=== PATIENT | male | born 1960 | race African-American/Black ===

== ENCOUNTER 2023-10-07 15:26 | Inpatient (IN) ==
[2023-10-07 16:28] LABS: STREP A BY PCR NOT DETECTED (NOT DETECT)
--- NOTE | 2023-10-07 20:10 | EKG ---
Test Reason : CHEST PAIN Blood Pressure : */* mmHG Vent. Rate : 74 BPM Atrial Rate : 74 BPM P-R Int : 168 ms QRS Dur : 108 ms QT Int : 390 ms P-R-T Axes : 55 36 65 degrees QTc Int : 432 ms Sinus rhythm with premature supraventricular complexes Minimal voltage criteria for LVH, may be normal variant ( Sokolow-Chowdhury ) Borderline ECG No previous ECGs available Confirmed by Manjeet Chery ([id number]) on 10/09/2023 7:58:20 AM Referred By: Confirmed By: Manjeet Chery
[2023-10-07 20:44] LABS: BASOPHILS % (AUTO) 0.3 % (0.2-1.0); EOSINOPHILS # (AUTO) 0.1 x10^3/uL (0.0-0.2); EOSINOPHILS % (AUTO) 0.8 % (0.9-2.9); HEMATOCRIT 39.4 % (42.0-54.0); HEMOGLOBIN 13.2 g/dL (13.5-18.0); LYMPHOCYTES # (AUTO) 1.5 X10^3/uL (1.3-2.9); LYMPHOCYTES % (AUTO) 13.5 % (21.0-51.0); MEAN CORPUSCULAR HEMOGLOBIN 28.2 pg (27.0-34.0); MEAN CORPUSCULAR HGB CONC 33.5 g/dL (33.0-35.0); MEAN CORPUSCULAR VOLUME 84.4 fL (80.0-100.0); MEAN PLATELET VOLUME 8.5 fL (7.4-11.0); MONOCYTES % (AUTO) 18.5 % (0.0-13.0); NEUTROPHILS # (AUTO) 7.3 x10^3/uL (2.2-4.8); NEUTROPHILS % (AUTO) 66.9 % (42.0-75.0); PLATELET COUNT 227 X10^3/uL (150.0-450.0); RED BLOOD COUNT 4.67 X10^6/uL (4.7-6.0); RED CELL DISTRIBUTION WIDTH 13.7 % (11.6-16.5)
[2023-10-07 20:46] LABS: INR 1.11 (0.8-1.3)
[2023-10-07 20:48] LABS: BILIRUBIN,URINE 1+ (NEGATIVE); BLOOD/HEMOGLOBIN,URINE 3+ (NEGATIVE); GLUCOSE, URINE NEGATIVE (NEGATIVE); KETONES,URINE NEGATIVE (NEGATIVE); LEUKOCYTE ESTERASE ,URINE 1+ (NEGATIVE); NITRITES,URINE NEGATIVE (NEGATIVE); PROTEIN,URINE 2+ (NEGATIVE); UROBILINOGEN,URINE 2+ (NORMAL)
--- NOTE | 2023-10-07 20:55 | DR.URIAD ---
HPI Time Seen Time Seen by Provider: 10/07/23 20:55 PCP Primary Care Physician: Antonieta Complaint Chief Complaint Doctors Comments: Patient states that he has been feeling weak for the past 2 days. He had:decreased appetite,fever,bodyaches,and dizzines s.Patient denies: sob, n,v,headache,abdominal pain. Chief Complaint:: Patient states that for 2 days he has had decreased appetite, fever, bodyaches, cough, and dizziness. COVID-19 Coronavirus risk:travel/contact w/high risk person: Yes Has patient experienced Coronavirus symptoms: Yes Coronavirus symptoms experienced: Fever, Coughing and Shortness of Breath Source History Provided: Patient Mode of Arrival Mode of Arrival: Ambulatory Timing Onset of Chief Complaint: 10/05/23 PMH PMH Past Medical History: Yes Past Medical History: Hypertension and Kidney Stones Past Surgical History: Yes Surgical History: Lithotripsy Family History History of Family Medical Conditions: Yes Family Medical History: Diabetes Mellitus, Cancer, [place], Heart Failure and Hypertension Social History Does patient currently use any type of tobacco product: No Have you used tobacco products in the last 12 months: No Type of Tobacco Use: None Does any household member use tobacco: No Alcohol Use: None Do you use any recreational Drugs:: No Lives With: Family Lives Where: Home Travel Risk Coronavirus risk:travel/contact w/high risk person: Yes Has patient experienced Coronavirus symptoms: Yes Coronavirus symptoms experienced: Fever, Coughing and Shortness of Breath Infectious screening In the last 2 months have you had wt loss of >10#?: NO Have you had fever, night sweats or hemotysis?: No Have you traveled outside the country in the last 6 months?: No Isolation: Droplet ROS Review of Systems Constitutional: negative Fever Eyes: No Symptoms Reported ENTM: No Symptoms Reported Respiratoy: No Symptoms Reported and Productive Cough (brown sputum,yellow sputum) Cardiovascular: No Symptoms Reported Gastrointestinal/Abdominal: No Symptoms Reported Genitourinary: No Symptoms Reported Neurological: No Symptoms Reported Musculoskeletal: No Symptoms Reported Integumentary: No Symptoms Reported Hematologic/Lymphatic: No Symptoms Reported Endocrine: No Symptoms Reported Psychiatric: No Symptoms Reported All Other Systems: Reviewed and Negative PE Vital Signs Vitals: Vital Signs Pulse Rate 66 Pulse Rate 64 Pulse Rate 63 Pulse Rate 63 Pulse Rate 64 Pulse Rate 66 Pulse Rate 71 Pulse Rate 65 Pulse Rate 63 Pulse Rate 65 Pulse Rate 69 Pulse Rate 69 Pulse Rate 70 Pulse Rate 67 Pulse Rate 68 Pulse Rate 66 Pulse Rate 70 Pulse Rate 70 Pulse Rate 70 Pulse Rate 69 Pulse Rate 69 Pulse Rate 70 Pulse Rate 68 Pulse Rate 73 Pulse Rate 78 Pulse Rate 80 Pulse Rate 81 Pulse Rate 80 Pulse Rate 81 Pulse Rate 72 Pulse Rate 78 Pulse Rate 78 Pulse Rate 87 Pulse Rate 80 Pulse Rate 81 Pulse Rate 82 Pulse Rate 79 Pulse Rate 76 Respiratory Rate 16 Respiratory Rate 16 Respiratory Rate 15 Respiratory Rate 15 Respiratory Rate 17 Respiratory Rate 22 Respiratory Rate 29 Respiratory Rate 16 Respiratory Rate 15 Respiratory Rate 16 Respiratory Rate 16 Respiratory Rate 17 Respiratory Rate 23 Respiratory Rate 25 Respiratory Rate 18 Respiratory Rate 20 Respiratory Rate 19 Respiratory Rate 23 Respiratory Rate 21 Respiratory Rate 19 Respiratory Rate 24 Respiratory Rate 27 Respiratory Rate 16 Respiratory Rate 23 Respiratory Rate 25 Respiratory Rate 34 Respiratory Rate 28 Respiratory Rate 20 Respiratory Rate 33 Respiratory Rate 24 Respiratory Rate 23 Respiratory Rate 24 Respiratory Rate 20 Respiratory Rate 31 Respiratory Rate 23 Respiratory Rate 26 Respiratory Rate 29 Blood Pressure 133/73 Blood Pressure 120/72 Blood Pressure 123/63 Blood Pressure 122/73 Blood Pressure 120/73 Blood Pressure 124/75 Blood Pressure 118/79 Blood Pressure 133/76 Blood Pressure 118/79 Blood Pressure 121/71 Blood Pressure 109/68 Blood Pressure 121/71 Blood Pressure 108/64 Blood Pressure 139/63 Blood Pressure 139/63 Blood Pressure 118/71 Blood Pressure 118/71 Blood Pressure 104/64 Blood Pressure 128/86 O2 Sat by Pulse Oximetry 98 O2 Sat by Pulse Oximetry 98 O2 Sat by Pulse Oximetry 96 O2 Sat by Pulse Oximetry 96 O2 Sat by Pulse Oximetry 96 O2 Sat by Pulse Oximetry 96 O2 Sat by Pulse Oximetry 94 O2 Sat by Pulse Oximetry 97 O2 Sat by Pulse Oximetry 96 O2 Sat by Pulse Oximetry 96 O2 Sat by Pulse Oximetry 96 O2 Sat by Pulse Oximetry 96 O2 Sat by Pulse Oximetry 96 O2 Sat by Pulse Oximetry 97 O2 Sat by Pulse Oximetry 95 O2 Sat by Pulse Oximetry 98 O2 Sat by Pulse Oximetry 94 O2 Sat by Pulse Oximetry 97 O2 Sat by Pulse Oximetry 94 O2 Sat by Pulse Oximetry 95 O2 Sat by Pulse Oximetry 94 O2 Sat by Pulse Oximetry 92 O2 Sat by Pulse Oximetry 95 O2 Sat by Pulse Oximetry 93 O2 Sat by Pulse Oximetry 93 O2 Sat by Pulse Oximetry 91 O2 Sat by Pulse Oximetry 93 O2 Sat by Pulse Oximetry 92 O2 Sat by Pulse Oximetry 94 O2 Sat by Pulse Oximetry 93 O2 Sat by Pulse Oximetry 93 O2 Sat by Pulse Oximetry 94 O2 Sat by Pulse Oximetry 97 O2 Sat by Pulse Oximetry 92 O2 Sat by Pulse Oximetry 93 O2 Sat by Pulse Oximetry 90 O2 Sat by Pulse Oximetry 93 O2 Sat by Pulse Oximetry 95 General Limitations: No Limitations General Appearance: Alert and In No Apparent Distress Head Head Exam: Normal Inspection Eyes Eye exam: Normal Appearance ENT ENT Exam: Normal Exam External Ear Exam: Normal External Inspection TM/Canal Exam: Bilateral: Normal Nose Exam: Normal Nose Exam Nasal Speculum Exam: Bilateral: Normal Mouth Exam: Normal Inspection Throat Exam: Normal Inspection Neck Neck Exam: Normal Inspection Chest Chest Inspection: Normal Inspection Respiratory Respiratory Exam: Normal Lung Sounds Bilat Respiratory Exam: Bilateral: Clear to Auscultation Cardiovascular Cardiovascular Exam: Regular Rate and Normal Rhythm Abdominal Exam Abdominal Exam: Normal Inspection, Normal Bowel Sounds and Soft Extremeties Extremities Exam: Normal Inspection Back Back Exam: Normal Inspection Neurologic Neurological Exam: Alert and Oriented X3 Psychiatric Psychiatric Exam: Normal Affect and Normal Mood Skin Skin Exam: Warm, Dry, Intact and Normal Color MDM Differential Diagnosis Differential Diagnosis: Influenza A, Influenza B, Streptococcal pharyngitis and Pneumonia COURSE Treatment Treatment: Patient was brought to monitored room and IV access was initiated. Patient had a positive D-dimer 3.77 and the CTA of his chest revealed a left lower lobe pneumonia with a small effusion. Patient's COVID 19, influenza, strep, RSV were negative. Patient has a WBC of 11.0 and was given Rocephin 2 g IV and azithromycin 500 mg IV. An ABG was done and revealed pH of 7.5, pCO2 of 36, pO2 of 76. Discussed case with Dr. Hernandez who has accepted the patient to his service. On room air patient had an O2 sat that decreased to 88-90. He was placed on 2 L O2 per nasal cannula. His current O2 sat is 98 to 100%. [facility] Labs Reviewed 10/07/23 20:26 10/07/23 20:26 Laboratory: WBC 11.0 X10^3/uL (3.6-10.0) H 10/07/23 20:26 RBC 4.67 X10^6/uL (4.7-6.0) L 10/07/23 20:26 Hgb 13.2 g/dL (13.5-18.0) L 10/07/23 20:26 Hct 39.4 % (42.0-54.0) L 10/07/23 20:26 MCV 84.4 fL (80.0-100.0) 10/07/23 20:26 MCH 28.2 pg (27.0-34.0) 10/07/23 20: MCHC 33.5 g/dL (33.0-35.0) 10/07/23 20: RDW 13.7 % (11.6-16.5) 10/07/23 20: Plt Count 227 X10^3/uL (150.0-450.0) 10/07/23 20:26 MPV 8.5 fL (7.4-11.0) 10/07/23 20:26 Neut % (Auto) 66.9 % (42.0-75.0) 10/07/23 20: Lymph % (Auto) 13.5 % (21.0-51.0) L 10/07/23 20:26 [place] % (Auto) 18.5 % (0.0-13.0) H 10/07/23 20:26 Eos % (Auto) 0.8 % (0.9-2.9) L 10/07/23 20:26 Baso % (Auto) 0.3 % (0.2-1.0) 10/07/23 20: Neut # (Auto) 7.3 x10^3/uL (2.2-4.8) H 10/07/23 20:26 Lymph # (Auto) 1.5 X10^3/uL (1.3-2.9) 10/07/23 20:26 [place] # (Auto) 2.0 x10^3/uL (0.3-0.8) H 10/07/23 20:26 Eos # (Auto) 0.1 x10^3/uL (0.0-0.2) 10/07/23 20: Baso # (Auto) 0.0 X10^3/uL (0.0-0.1) 10/07/23 20: Absolute Nucleated RBC 0.1 /100WBC 10/07/23 20: PT 14.1 SECONDS (11.8-14.3) 10/07/23 20:26 INR Target Range - 10/07/23 20: INR 1.11 (0.8-1.3) 10/07/23 20: APTT 28.9 SECONDS (22.9-36.5) 10/07/23 20: PTT Comment - 10/07/23 20:26 D-Dimer 3.77 ug/ml (0.0-0.57) H 10/07/23 20:26 Sample Site L rad 10/08/23 00:24 ABG pH 7.510 (7.35-7.45) H 10/08/23 00:24 ABG pCO2 36.0 mmHg (35.0-45.0) 10/08/23 00:24 ABG pO2 76.0 mmHg (80.0-100.0) L 10/08/23 00:24 ABG HCO3 28.7 mmol/L (22-26) H 10/08/23 00:24 ABG O2 Saturation 96.0 % (90-100) 10/08/23 00:24 ABG Base Excess 5.5 mmol/L (-2.0-2.0) H 10/08/23 00:24 Lukasz Test Pos 10/08/23 00:24 A-a Gradient 29.0 mmHg 10/08/23 00:24 FiO2 21.0 10/08/23 00:24 Blood Gas Comments Christen well staff accountant 10/08/23 00:24 Sodium 134 mmol/L (136-145) L 10/07/23 20:26 Corrected Sodium TNP 10/07/23 20:26 Potassium 3.4 mmol/L (3.5-5.1) L 10/07/23 20:26 Chloride 98 mmol/L (98-107) 10/07/23 20:26 Carbon Dioxide 29.3 mmol/L (21-32) 10/07/23 20:26 BUN 40 mg/dL (7-18) H 10/07/23 20:26 Creatinine 1.28 mg/dL (0.70-1.30) 10/07/23 20:26 Est GFR (MDRD) Af Amer > 60 (>60) 10/07/23 20:26 Est GFR (MDRD) Non-Af > 60 (>60) 10/07/23 20:26 Glucose 108 mg/dL (65-99) H 10/07/23 20:26 Lactic Acid 1.0 mmol/L (0.4-2.0) 10/07/23 23:58 Calcium 9.1 mg/dL (8.5-10.1) 10/07/23 20: Corrected Calcium 10.6 mg/dL (8.5-10.1) H 10/07/23 20:26 Total Bilirubin 0.70 mg/dL (0.2-1.0) 10/07/23 20:26 AST 19 Units/L (15-37) 10/07/23 20:26 ALT 21 Units/L (12-78) 10/07/23 20:26 Alkaline Phosphatase 74 Units/L (46-116) 10/07/23 20: Creatine Kinase 56 Units/L (39-308) 10/07/23 20: Troponin I High Sens 5.2 ng/L (4.0-60.0) 10/07/23 20: B-Natriuretic Peptide 170 pg/mL (0-79) H 10/07/23 20:26 Total Protein 7.5 g/dL (6.4-8.2) 10/07/23 20:26 Albumin 2.1 g/dL (3.4-5.0) L 10/07/23 20: Globulin 5.4 g/dL (2.5-4.5) H 10/07/23 20:26 Albumin/Globulin Ratio 0.4 Ratio (1.1-2.1) L 10/07/23 20:26 Specimen Type Clean catch urine 10/07/23 20:32 Urine Color [place] (YELLOW) 10/07/23 20: Urine Appearance Clear (CLEAR) 10/07/23 20:32 Urine pH 6.0 (5.0 - 8.0) 10/07/23 20:32 Ur Specific [place] 1.015 (1.000-1.030) 10/07/23 20: Urine Protein 2+ (NEGATIVE) 10/07/23 20: Urine Glucose (UA) Negative (NEGATIVE) 10/07/23 20: Urine Ketones Negative (NEGATIVE) 10/07/23 20: Urine Blood 3+ (NEGATIVE) 10/07/23 20: Urine Nitrite Negative (NEGATIVE) 10/07/23 20: Urine Bilirubin 1+ (NEGATIVE) 01/01/24 20:32 Urine Urobilinogen 2+ (NORMAL) 10/07/23 20:32 Ur Leukocyte Esterase 1+ (NEGATIVE) 10/07/23 20:32 Urine RBC 5-10 /HPF (0-3) A 10/07/23 20:32 Urine WBC 5-10 /HPF (0-5) A 10/07/23 20:32 Ur Squamous Epith Cells Few /HPF (NEGATIVE) 10/07/23 20:32 Amorphous Sediment 1+ /HPF (NEGATIVE) 10/07/23 20:32 Urine Bacteria Trace /HPF (NEGATIVE) 10/07/23 20:32 Urine Mucus Many /HPF (NEGATIVE) 10/07/23 20:32 Ur Culture Indicated? No/not indicated 10/07/23 20:32 SARS-CoV-2 (PCR) Negative (NEGATIVE) 10/07/23 15:40 Influenza Type A (PCR) Negative (NEGATIVE) 10/07/23 15:40 Influenza Type B (PCR) Negative (NEGATIVE) 10/07/23 15:40 RSV (PCR) Negative (NEGATIVE) 10/07/23 15:40 S. pyogenes (TEM-PCR) Not detected (NOT DETECT) 10/07/23 15:40 Opioid Opioid Risk Tool Age (Darnell box if 16-45): No History of Preadolescent Sexual Abuse: No Total: 0 Total Score Risk Category: Low Risk Copyright: Clement BRITTON predicting aberrant behaviors Discharge Plan Diagnosis Discharge Problem: Left lower lobe pneumonia, Hypoxemia Discharge Plan Patient Disposition: 09 ADMITTED INPATIENT Condition: Stable Prescriptions: No Action lisinopril-hydrochlorothiazide 20-25 mg tablet 1 tab PO QDAY Qty: 30 3RF sildenafil [Viagra] 100 mg tablet 100 mg PO QDAY PRN (Reason: sexual activity) 30 Days Qty: 30 2RF Rx Instructions: FreeTextSi (one) Tablet daily, as needed; Note: Take 1 hour before activity.; Refills: 2; Provider: Antonieta Chahal amlodipine 5 mg tablet 5 mg PO QDAY 30 Days Qty: 30 3RF meloxicam 15 mg tablet 15 mg PO QDAY 30 Days Qty: 30 3RF alprazolam [Xanax] 0.5 mg tablet 0.5 mg PO QDAY MDD 1 PRN (Reason: anxiety) 30 Days Qty: 30 0RF hydrocodone-acetaminophen 10-325 mg tablet 1 tab PO TID MDD 3 PRN (Reason: pain) 30 Days Qty: 90 0RF Health Concerns: Post Hospitalization: new medications and changes needed to prevent readmission or further decline. Pt educated and given instructions on all concerns. Plan of Treatment: Continue with present treatment and follow up plan. Pt is to keep follow up appointment as instructed and take medications as ordered. Orders to Discharge Patient Discharge Orders: Transfer (Routine); Ordered 10/08/23 Ordered By: Bertha López Follow ups/Referrals Follow ups/Referrals: Tirso Fung [Primary Care Provider] - 3 days Instructions Stand Alone Forms: Post Hospital Follow Up Care
[2023-10-07 20:57] LABS: ALANINE AMINOTRANSFERASE 21 Units/L (12-78); ALBUMIN 2.1 g/dL (3.4-5.0); ALKALINE PHOSPHATASE 74 Units/L (46-116); ASPARTATE AMINO TRANSFERASE 19 Units/L (15-37); BLOOD UREA NITROGEN 40 mg/dL (7-18); CALCIUM 9.1 mg/dL (8.5-10.1); CARBON DIOXIDE 29.3 mmol/L (21-32); CHLORIDE 98 mmol/L (98-107); COR CA(FOR HYPOALB) 10.6 mg/dL (8.5-10.1); CREATINE KINASE 56 Units/L (39-308); CREATININE 1.28 mg/dL (0.70-1.30); GLUCOSE 108 mg/dL (65-99); POTASSIUM 3.4 mmol/L (3.5-5.1); SODIUM 134 mmol/L (136-145); TOTAL PROTEIN 7.5 g/dL (6.4-8.2); eGFR NON BLACK RACES > 60 (>60)
[2023-10-07 21:13] LABS: APPEARANCE,URINE CLEAR (CLEAR); BACTERIA,URINE TRACE /HPF (NEGATIVE); COLOR,URINE AMBER (YELLOW); SQUAMOUS EPITHELIAL CELL,UR FEW /HPF (NEGATIVE)
--- NOTE | 2023-10-07 22:06 | RAD ---
EXAM:CHEST, 1 VIEWHISTORY:Patient states that for 2 days he has had decreased appetite, fever, bodyaches, cough, and dizziness.;COMPARISON:None.TECHNIQUE:A single frontal view of the chest was obtained.FINDINGS:The heart is normal in size. There is diffuse left mid lung zone and left lower lobe alveolar infiltrates. There are also infiltrates seen of the periphery of the right lung. There is no effusion. There is no pneumothorax. The osseous structures are intact. There is a healed fracture of the left 6 posterior rib.IMPRESSION:Diffuse left lung alveolar infiltrate predominantly involving the mid lung zone and left lower lobe.THIS IS AN ELECTRONICALLY VERIFIED FINAL REPORT10/07/2023 10:02 PM - Electronically signed by Kinga Natarajan MD
[2023-10-07] MEDS ORDERED: OMNIPAQUE 350 mg/mL 100 mL BTL 100 ML ONE (22:30)
--- NOTE | 2023-10-07 23:29 | CT ---
PROCEDURE: CTA Chest .HISTORY: Dizziness for 2 days.TECHNIQUE: Axial images were performed through the chest with the administration of IV contrast with multiplanar reformations . 3D and MIPS reconstructions were performed and reviewed. Dose reduction techniques including Automated Exposure Control (AEC) and adjustment of mA and kV were utilized .COMPARISON: None .TECHNICAL QUALITY: Satisfactory .FINDINGS:Mild atherosclerosis thoracic aorta with no aneurysm. Aortic lumen is unopacified with contrast.No evidence of pulmonary embolus.Mediastinum and hilar regions show no masses or lymphadenopathy.Heart size upper limits of normal with no pericardial fluid.Small left pleural effusion. Consolidation left lower lobe consistent with pneumonia. Some dependent atelectasis lung bases. No pulmonary masses.Visualized upper abdomen shows no significant abnormality.IMPRESSION:1. No pulmonary embolus.2. Heart size upper limits of normal.3. Left lower lobe pneumonia with small effusion.Electronically signed by: Dirk Garsia (Oct 07, 2023 23:27:54)
[2023-10-07] MEDS ORDERED: ROCEPHIN VIAL 2 GRAMS 2 G in NS 100 ML IV 100 ML IV ONE (23:51)
[2023-10-07] MEDS ORDERED: ZITHROMAX INJ 500 MG VIAL 500 MG in D5W 250 ML IV 250 ML IV ONE (23:52)
[2023-10-07] MEDS ORDERED: ZITHROMAX INJ 500 MG VIAL IV ONE (23:55)
[2023-10-07] MEDS ORDERED: NS 100 ML IV 100 ML ONE (23:55)
[2023-10-07] MEDS ORDERED: ROCEPHIN VIAL 2 GRAMS ONE (23:55)
[2023-10-07] MEDS ORDERED: D5W 250 ML IV 250 ML IV ONE (23:56)
[2023-10-08 00:29] LABS: ABG BASE EXCESS 5.5 mmol/L (-2.0-2.0); ABG HCO3 28.7 mmol/L (22-26)
[2023-10-08 00:30] LABS: ABG ALLEN TEST POS
[2023-10-08] MEDS ORDERED: ROCEPHIN VIAL 2 GRAMS 2 G in NS 100 ML IV 100 ML IV SCH (04:48)
[2023-10-08] MEDS ORDERED: ZITHROMAX INJ 500 MG VIAL 500 MG in D5W 250 ML IV 250 ML IV SCH (04:49)
[2023-10-08] MEDS ORDERED: NORCO 10/325 TAB PO PRN (05:19)
[2023-10-08] MEDS ORDERED: XANAX PO PRN (05:19)
[2023-10-08 05:56] VITALS: BMI 24.4
[2023-10-08] MEDS: ZESTORETIC 20/25 MG PO SCH (09:01)
[2023-10-08] MEDS: MOBIC TAB 15 MG PO SCH (09:01)
[2023-10-08] MEDS: NORVASC TAB 5 MG PO SCH (09:01)
[2023-10-08] MEDS: NS 1,000 ML IV 1,000 ML IV SCH (09:40)
[2023-10-08] MEDS: PULMICORT NEB TX 0.5 MG NEB SCH ×2 (09:49→20:27)
[2023-10-08] MEDS: DUONEB 0.5 MG/3 MG (3 mL) NEB SCH ×4 (09:49→20:27)
[2023-10-08] MEDS: ROCEPHIN VIAL 2 GRAMS 2 G in NS 100 ML IV 100 ML IV SCH (20:48)
[2023-10-08] MEDS: ZITHROMAX INJ 500 MG VIAL 500 MG in D5W 250 ML IV 250 ML IV SCH (21:55)
[2023-10-08] MEDS ORDERED: K-DUR TAB 20 MEQ PO ONE ×2 (22:00)
[2023-10-09] MEDS: NS 1,000 ML IV 1,000 ML IV SCH (00:18)
[2023-10-09 05:23] LABS: BASOPHILS % (AUTO) 0.3 % (0.2-1.0); EOSINOPHILS # (AUTO) 0.1 x10^3/uL (0.0-0.2); EOSINOPHILS % (AUTO) 1.3 % (0.9-2.9); HEMATOCRIT 34.7 % (42.0-54.0); HEMOGLOBIN 11.5 g/dL (13.5-18.0); LYMPHOCYTES # (AUTO) 2.2 X10^3/uL (1.3-2.9); LYMPHOCYTES % (AUTO) 21.9 % (21.0-51.0); MEAN CORPUSCULAR HEMOGLOBIN 27.9 pg (27.0-34.0); MEAN CORPUSCULAR HGB CONC 33.1 g/dL (33.0-35.0); MEAN CORPUSCULAR VOLUME 84.3 fL (80.0-100.0); MEAN PLATELET VOLUME 8.6 fL (7.4-11.0); MONOCYTES # (AUTO) 1.8 x10^3/uL (0.3-0.8); MONOCYTES % (AUTO) 18.1 % (0.0-13.0); NEUTROPHILS # (AUTO) 5.9 x10^3/uL (2.2-4.8); NEUTROPHILS % (AUTO) 58.4 % (42.0-75.0); PLATELET COUNT 237 X10^3/uL (150.0-450.0); RED BLOOD COUNT 4.12 X10^6/uL (4.7-6.0); RED CELL DISTRIBUTION WIDTH 13.7 % (11.6-16.5); WHITE BLOOD COUNT 10.1 X10^3/uL (3.6-10.0)
[2023-10-09 05:34] LABS: ALANINE AMINOTRANSFERASE 22 Units/L (12-78); ALBUMIN 1.8 g/dL (3.4-5.0); ALKALINE PHOSPHATASE 67 Units/L (46-116); ASPARTATE AMINO TRANSFERASE 24 Units/L (15-37); BLOOD UREA NITROGEN 19 mg/dL (7-18); CALCIUM 8.6 mg/dL (8.5-10.1); CHLORIDE 102 mmol/L (98-107); COR CA(FOR HYPOALB) 10.4 mg/dL (8.5-10.1); CREATININE 0.92 mg/dL (0.70-1.30); GLUCOSE 108 mg/dL (65-99); MAGNESIUM 1.8 mg/dL (2.0-2.9); POTASSIUM 3.1 mmol/L (3.5-5.1); SODIUM 138 mmol/L (136-145); TOTAL PROTEIN 6.7 g/dL (6.4-8.2); eGFR NON BLACK RACES > 60 (>60)
[2023-10-09] MEDS ORDERED: CONSULT PHARMACY - POTASSIUM & MAGNESIUM XX SCH ×2 (07:00)
[2023-10-09] MEDS ORDERED: K-DUR TAB 20 MEQ PO SCH (09:00)
[2023-10-09] MEDS: NORVASC TAB 5 MG PO SCH (09:06)
[2023-10-09] MEDS: MAG-OX TAB PO SCH ×2 (09:06→09:56)
[2023-10-09] MEDS: ZESTORETIC 20/25 MG PO SCH (09:06)
[2023-10-09] MEDS: MOBIC TAB 15 MG PO SCH (09:06)
[2023-10-09] MEDS: DUONEB 0.5 MG/3 MG (3 mL) NEB SCH ×4 (09:07→21:15)
[2023-10-09] MEDS: PULMICORT NEB TX 0.5 MG NEB SCH ×2 (09:07→21:15)
--- NOTE | 2023-10-09 09:10 | DR.H&P ---
H&P History & Physical for Day of: H&P Date: 10/08/23 Chief Complaint Chief Complaint: Cough, shortness of breath Weakness Allergies Allergies Allergy/AdvReac Type Severity Reaction Status Date / Time povidone-iodine [Betadine] Allergy Unknown Verified 10/07/23 20:38 History of Present Illness History of Present Illness: Patient is a 63-year-old male presenting with cough, shortness of breath, weakness for the past 2 days that had progressively worsened. He reports feeling some pain on the left side of his chest with breathing. When he started to feel little lightheaded he went to the ED. Labs/imaging: WBC 11, hemoglobin 13.2, platelets 227, sodium 134, potassium 3.4, creatinine 1.28, glucose 108, troponin negative, BNP 170, UA negative, COVID/flu/RSV negative, chest x-ray was obtained that revealed: Diffuse left lung alveolar infiltrate predominantly involving the mid lung zone and left lower lobe. CTA of the chest was obtained that revealed: 1. No pulmonary embolus. 2.Heart size upper limits of normal. 3. Left lower lobe pneumonia with small effusion. Will start patient on IV fluids normal saline at 75 mL/h. Order IV Rocephin daily and IV azithromycin daily for antibiotic coverage. AIT send out is pending. Respiratory consult for bronchodilators and supplemental oxygen. Restart home medications. Otherwise continue with current treatment plan. Continue closely monitor and follow-up labs/imaging. Past Medical History Past Medical History: Hypertension and Kidney Stones Past Surgical History Surgical History: Lithotripsy Family History Family Medical History: Diabetes Mellitus, Cancer, [place], Heart Failure and Hypertension Social History Does patient currently use any type of tobacco product: No Have you used tobacco products in the last 12 months: No Type of Tobacco Use: None Does any household member use tobacco: No Alcohol Use: None Drug Use: None Labs 10/09/23 04:38 10/09/23 04:38 Labs: Laboratory WBC 10.1 X10^3/uL (3.6-10.0) H 10/09/23 04:38 RBC 4.12 X10^6/uL (4.7-6.0) L 10/09/23 04:38 Hgb 11.5 g/dL (13.5-18.0) L 10/09/23 04:38 Hct 34.7 % (42.0-54.0) L 10/09/23 04:38 MCV 84.3 fL (80.0-100.0) 10/09/23 04:38 MCH 27.9 pg (27.0-34.0) 10/09/23 04:38 MCHC 33.1 g/dL (33.0-35.0) 10/09/23 04:38 RDW 13.7 % (11.6-16.5) 10/09/23 04:38 Plt Count 237 X10^3/uL (150.0-450.0) 10/09/23 04:38 MPV 8.6 fL (7.4-11.0) 10/09/23 04:38 Neut % (Auto) 58.4 % (42.0-75.0) 10/09/23 04:38 Lymph % (Auto) 21.9 % (21.0-51.0) 10/09/23 04:38 [place] % (Auto) 18.1 % (0.0-13.0) H 10/09/23 04:38 Eos % (Auto) 1.3 % (0.9-2.9) 10/09/23 04:38 Baso % (Auto) 0.3 % (0.2-1.0) 10/09/23 04:38 Neut # (Auto) 5.9 x10^3/uL (2.2-4.8) H 10/09/23 04:38 Lymph # (Auto) 2.2 X10^3/uL (1.3-2.9) 10/09/23 04:38 [place] # (Auto) 1.8 x10^3/uL (0.3-0.8) H 10/09/23 04:38 Eos # (Auto) 0.1 x10^3/uL (0.0-0.2) 10/09/23 04:38 Baso # (Auto) 0.0 X10^3/uL (0.0-0.1) 10/09/23 04:38 Absolute Nucleated RBC 0.0 /100WBC 10/09/23 04:38 PT 14.1 SECONDS (11.8-14.3) 10/07/23 20:26 INR Target Range - 10/07/23 20:26 INR 1.11 (0.8-1.3) 10/07/23 20:26 APTT 28.9 SECONDS (22.9-36.5) 10/07/23 20:26 PTT Comment - 10/07/23 20:26 D-Dimer 3.77 ug/ml (0.0-0.57) H 10/07/23 20:26 Sample Site L rad 10/08/23 00:24 ABG pH 7.510 (7.35-7.45) H 10/08/23 00:24 ABG pCO2 36.0 mmHg (35.0-45.0) 10/08/23 00:24 ABG pO2 76.0 mmHg (80.0-100.0) L 10/08/23 00:24 ABG HCO3 28.7 mmol/L (22-26) H 10/08/23 00:24 ABG O2 Saturation 96.0 % (90-100) 10/08/23 00:24 ABG Base Excess 5.5 mmol/L (-2.0-2.0) H 10/08/23 00:24 Lukasz Test Pos 10/08/23 00:24 A-a Gradient 29.0 mmHg 10/08/23 00:24 FiO2 21.0 10/08/23 00:24 Blood Gas Comments Christen well relaster 10/08/23 00:24 Sodium 138 mmol/L (136-145) 10/09/23 04:38 Corrected Sodium TNP 10/09/23 04:38 Potassium 3.1 mmol/L (3.5-5.1) L 10/09/23 04:38 Chloride 102 mmol/L (98-107) 10/09/23 04:38 Carbon Dioxide 30.0 mmol/L (21-32) 10/09/23 04:38 BUN 19 mg/dL (7-18) H 10/09/23 04:38 Creatinine 0.92 mg/dL (0.70-1.30) 10/09/23 04:38 Est GFR (MDRD) Af Amer > 60 (>60) 10/09/23 04:38 Est GFR (MDRD) Non-Af > 60 (>60) 10/09/23 04:38 Glucose 108 mg/dL (65-99) H 10/09/23 04:38 Lactic Acid 1.0 mmol/L (0.4-2.0) 10/07/23 23:58 Calcium 8.6 mg/dL (8.5-10.1) 10/09/23 04:38 Corrected Calcium 10.4 mg/dL (8.5-10.1) H 10/09/23 04:38 Magnesium 1.8 mg/dL (2.0-2.9) L 10/09/23 04:38 Total Bilirubin 0.40 mg/dL (0.2-1.0) 10/09/23 04:38 AST 24 Units/L (15-37) 10/09/23 04:38 ALT 22 Units/L (12-78) 10/09/23 04:38 Alkaline Phosphatase 67 Units/L (46-116) 10/09/23 04:38 Creatine Kinase 56 Units/L (39-308) 10/07/23 20:26 Troponin I High Sens 5.2 ng/L (4.0-60.0) 10/07/23 20:26 B-Natriuretic Peptide 170 pg/mL (0-79) H 10/07/23 20:26 Total Protein 6.7 g/dL (6.4-8.2) 10/09/23 04:38 Albumin 1.8 g/dL (3.4-5.0) L 10/09/23 04:38 Globulin 4.9 g/dL (2.5-4.5) H 10/09/23 04:38 Albumin/Globulin Ratio 0.4 Ratio (1.1-2.1) L 10/09/23 04:38 Specimen Type Clean catch urine 10/07/23 20:32 Urine Color [place] (YELLOW) 10/07/23 20:32 Urine Appearance Clear (CLEAR) 10/07/23 20:32 Urine pH 6.0 (5.0 - 8.0) 10/07/23 20:32 Ur Specific [place] 1.015 (1.000-1.030) 10/07/23 20:32 Urine Protein 2+ (NEGATIVE) 10/07/23 20:32 Urine Glucose (UA) Negative (NEGATIVE) 10/07/23 20:32 Urine Ketones Negative (NEGATIVE) 10/07/23 20:32 Urine Blood 3+ (NEGATIVE) 10/07/23 20:32 Urine Nitrite Negative (NEGATIVE) 10/07/23 20:32 Urine Bilirubin 1+ (NEGATIVE) 10/07/23 20:32 Urine Urobilinogen 2+ (NORMAL) 10/07/23 20:32 Ur Leukocyte Esterase 1+ (NEGATIVE) 10/07/23 20:32 Urine RBC 5-10 /HPF (0-3) A 10/07/23 20:32 Urine WBC 5-10 /HPF (0-5) A 10/07/23 20:32 Ur Squamous Epith Cells Few /HPF (NEGATIVE) 10/07/23 20:32 Amorphous Sediment 1+ /HPF (NEGATIVE) 10/07/23 20:32 Urine Bacteria Trace /HPF (NEGATIVE) 10/07/23 20:32 Urine Mucus Many /HPF (NEGATIVE) 10/07/23 20:32 Ur Culture Indicated? No/not indicated 10/07/23 20:32 SARS-CoV-2 (PCR) Negative (NEGATIVE) 10/07/23 15:40 Influenza Type A (PCR) Negative (NEGATIVE) 10/07/23 15:40 Influenza Type B (PCR) Negative (NEGATIVE) 10/07/23 15:40 RSV (PCR) Negative (NEGATIVE) 10/07/23 15:40 S. pyogenes (TEM-PCR) Not detected (NOT DETECT) 10/07/23 15:40 Review of Systems Constitutional: Weakness Eyes: No Symptoms Reported ENT: No Symptoms Reported Respiratory: Cough, Shortness of Breath and Wheezing Cardiovascular: No Symptoms Reported Gastrointestinal: No Symptoms Reported Genitourinary: No Symptoms Reported Musculoskeletal: No Symptoms Reported Skin: No Symptoms Reported Neurological: No Symptoms Reported Physical Exam Vital Signs: Vital Signs Temperature 97.9 F Pulse Rate 65 Pulse Rate 70 Pulse Rate 70 Pulse Rate 68 Pulse Rate 63 Pulse Rate 69 Pulse Rate 65 Pulse Rate 68 Respiratory Rate 16 Respiratory Rate 22 Respiratory Rate 20 Respiratory Rate 16 Respiratory Rate 15 Respiratory Rate 17 Respiratory Rate 15 Respiratory Rate 21 Blood Pressure 144/81 Blood Pressure 157/74 Blood Pressure 127/75 Blood Pressure 128/69 Blood Pressure 126/74 Blood Pressure 119/68 Blood Pressure 126/68 O2 Sat by Pulse Oximetry 99 O2 Sat by Pulse Oximetry 99 O2 Sat by Pulse Oximetry 97 O2 Sat by Pulse Oximetry 99 O2 Sat by Pulse Oximetry 98 O2 Sat by Pulse Oximetry 95 O2 Sat by Pulse Oximetry 98 O2 Sat by Pulse Oximetry 99 Oriented: Normal Eyes: Normal Ear: Normal Nose: Normal Throat: Normal Respiratory: LLL Rhonchi Cardiovascular: Normal : Normal Auscultation: Bowel Sounds: Normal Palpation: Normal Tenderness: Normal Skin: Normal Musculoskeletal: Normal Psychiatric: Normal Mood Description: Calm and Appropriate Affect: Normal Speech Pattern: Clear and Appropriate Assessment/Plan (1) Left lower lobe pneumonia: Narrative Support Text: Continue IV antibiotics, and AIT pending. Bronchodilators, respiratory consult. Status: Acute (2) Hypoxemia: Status: Acute (3) Benign hypertension: Status: None (4) Chronic low back pain with sciatica: Status: None (5) Generalized anxiety disorder: Status: None Review H&P Reviewed: Yes Patient was examined?: Yes
--- NOTE | 2023-10-09 09:27 | PCM.PROG ---
Progress Note Progress Note for Day of Date of Exam: 10/09/23 Subjective Subjective: Patient is a 63-year-old male admitted for pneumonia. This morning he is sitting up in bed eating breakfast. He does report that symptoms have improved including pain in his chest while breathing. No acute events overnight. Labs/imaging: WBC 10.1, hemoglobin 11.5, platelets 237, sodium 138, potassium 3.1, creatinine 0.92, glucose 108, chest x-ray ordered this morning is pending. Continue with IV fluids normal saline at 75 mL/h, antibiotics: IV Rocephin daily and IV azithromycin daily for antibiotic coverage. AIT send out is pending. Scheduled bronchodilators, I/S, and supplemental oxygen. Home medications have been resumed. Otherwise continue with current treatment plan. Continue closely monitor and follow-up labs/imaging. Past Medical Family Social History Allergies: Allergies povidone-iodine [Betadine] Allergy (Unknown, Verified 10/07/23 20:38) Reason: Drug allergy Review of Systems ROS changes noted: see HPI Vital Signs and I&O's Vital Signs: Vital Signs Temperature 97.9 F Pulse Rate 74 Pulse Rate 78 Pulse Rate 65 Pulse Rate 70 Pulse Rate 70 Pulse Rate 68 Pulse Rate 63 Pulse Rate 69 Pulse Rate 65 Respiratory Rate 22 Respiratory Rate 24 Respiratory Rate 16 Respiratory Rate 22 Respiratory Rate 20 Respiratory Rate 16 Respiratory Rate 15 Respiratory Rate 17 Respiratory Rate 15 Blood Pressure 133/73 Blood Pressure 144/81 Blood Pressure 157/74 Blood Pressure 127/75 Blood Pressure 128/69 Blood Pressure 126/74 Blood Pressure 119/68 O2 Sat by Pulse Oximetry 93 O2 Sat by Pulse Oximetry 99 O2 Sat by Pulse Oximetry 99 O2 Sat by Pulse Oximetry 97 O2 Sat by Pulse Oximetry 99 O2 Sat by Pulse Oximetry 98 O2 Sat by Pulse Oximetry 95 O2 Sat by Pulse Oximetry 98 Intake and Output: Intake & Output 10/06/23 10/07/23 10/08/23 10/09/23 23:59 23:59 23:59 23:59 Intake Total 1535 / 1535 754 / 754 Output Total 1900 / 1900 450 / 450 Balance -365 / -365 304 / 304 Physical Exam Oriented: Normal Eyes: Normal Ear: Normal Nose: Normal Throat: Normal Respiratory: Rhonchi Cardiovascular: Normal : Normal Auscultation: Bowel Sounds: Normal Tenderness: Normal Skin: Normal Musculoskeletal: Normal Psychiatric: Normal Mood Description: Calm and Appropriate Affect: Normal Speech Pattern: Clear and Appropriate Laboratory and Diagnostics 10/09/23 04:38 10/09/23 04:38 Labs: Laboratory WBC 10.1 X10^3/uL (3.6-10.0) H 10/09/23 04:38 RBC 4.12 X10^6/uL (4.7-6.0) L 10/09/23 04:38 Hgb 11.5 g/dL (13.5-18.0) L 10/09/23 04:38 Hct 34.7 % (42.0-54.0) L 10/09/23 04:38 MCV 84.3 fL (80.0-100.0) 10/09/23 04:38 MCH 27.9 pg (27.0-34.0) 10/09/23 04:38 MCHC 33.1 g/dL (33.0-35.0) 10/09/23 04:38 RDW 13.7 % (11.6-16.5) 10/09/23 04:38 Plt Count 237 X10^3/uL (150.0-450.0) 10/09/23 04:38 MPV 8.6 fL (7.4-11.0) 10/09/23 04:38 Neut % (Auto) 58.4 % (42.0-75.0) 10/09/23 04:38 Lymph % (Auto) 21.9 % (21.0-51.0) 10/09/23 04:38 [place] % (Auto) 18.1 % (0.0-13.0) H 10/09/23 04:38 Eos % (Auto) 1.3 % (0.9-2.9) 10/09/23 04:38 Baso % (Auto) 0.3 % (0.2-1.0) 10/09/23 04:38 Neut # (Auto) 5.9 x10^3/uL (2.2-4.8) H 10/09/23 04:38 Lymph # (Auto) 2.2 X10^3/uL (1.3-2.9) 10/09/23 04:38 [place] # (Auto) 1.8 x10^3/uL (0.3-0.8) H 10/09/23 04:38 Eos # (Auto) 0.1 x10^3/uL (0.0-0.2) 10/09/23 04:38 Baso # (Auto) 0.0 X10^3/uL (0.0-0.1) 10/09/23 04:38 Absolute Nucleated RBC 0.0 /100WBC 10/09/23 04:38 PT 14.1 SECONDS (11.8-14.3) 10/07/23 20:26 INR Target Range - 10/07/23 20:26 INR 1.11 (0.8-1.3) 10/07/23 20:26 APTT 28.9 SECONDS (22.9-36.5) 10/07/23 20:26 PTT Comment - 10/07/23 20:26 D-Dimer 3.77 ug/ml (0.0-0.57) H 10/07/23 20:26 Sample Site L rad 10/08/23 00:24 ABG pH 7.510 (7.35-7.45) H 10/08/23 00:24 ABG pCO2 36.0 mmHg (35.0-45.0) 10/08/23 00:24 ABG pO2 76.0 mmHg (80.0-100.0) L 10/08/23 00:24 ABG HCO3 28.7 mmol/L (22-26) H 10/08/23 00:24 ABG O2 Saturation 96.0 % (90-100) 10/08/23 00:24 ABG Base Excess 5.5 mmol/L (-2.0-2.0) H 10/08/23 00:24 Lukasz Test Pos 10/08/23 00:24 A-a Gradient 29.0 mmHg 10/08/23 00:24 FiO2 21.0 10/08/23 00:24 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 10/08/23 00:24 Sodium 138 mmol/L (136-145) 10/09/23 04:38 Corrected Sodium TNP 10/09/23 04:38 Potassium 3.1 mmol/L (3.5-5.1) L 10/09/23 04:38 Chloride 102 mmol/L (98-107) 10/09/23 04:38 Carbon Dioxide 30.0 mmol/L (21-32) 10/09/23 04:38 BUN 19 mg/dL (7-18) H 10/09/23 04:38 Creatinine 0.92 mg/dL (0.70-1.30) 10/09/23 04:38 Est GFR (MDRD) Af Amer > 60 (>60) 10/09/23 04:38 Est GFR (MDRD) Non-Af > 60 (>60) 10/09/23 04:38 Glucose 108 mg/dL (65-99) H 10/09/23 04:38 Lactic Acid 1.0 mmol/L (0.4-2.0) 10/07/23 23:58 Calcium 8.6 mg/dL (8.5-10.1) 10/09/23 04:38 Corrected Calcium 10.4 mg/dL (8.5-10.1) H 10/09/23 04:38 Magnesium 1.8 mg/dL (2.0-2.9) L 10/09/23 04:38 Total Bilirubin 0.40 mg/dL (0.2-1.0) 10/09/23 04:38 AST 24 Units/L (15-37) 10/09/23 04:38 ALT 22 Units/L (12-78) 10/09/23 04:38 Alkaline Phosphatase 67 Units/L (46-116) 10/09/23 04:38 Creatine Kinase 56 Units/L (39-308) 10/07/23 20:26 Troponin I High Sens 5.2 ng/L (4.0-60.0) 10/07/23 20:26 B-Natriuretic Peptide 170 pg/mL (0-79) H 10/07/23 20:26 Total Protein 6.7 g/dL (6.4-8.2) 10/09/23 04:38 Albumin 1.8 g/dL (3.4-5.0) L 10/09/23 04:38 Globulin 4.9 g/dL (2.5-4.5) H 10/09/23 04:38 Albumin/Globulin Ratio 0.4 Ratio (1.1-2.1) L 10/09/23 04:38 Specimen Type Clean catch urine 10/07/23 20:32 Urine Color [place] (YELLOW) 10/07/23 20:32 Urine Appearance Clear (CLEAR) 10/07/23 20:32 Urine pH 6.0 (5.0 - 8.0) 10/07/23 20:32 Ur Specific [place] 1.015 (1.000-1.030) 10/07/23 20:32 Urine Protein 2+ (NEGATIVE) 10/07/23 20:32 Urine Glucose (UA) Negative (NEGATIVE) 10/07/23 20:32 Urine Ketones Negative (NEGATIVE) 10/07/23 20:32 Urine Blood 3+ (NEGATIVE) 10/07/23 20:32 Urine Nitrite Negative (NEGATIVE) 10/07/23 20:32 Urine Bilirubin 1+ (NEGATIVE) 10/07/23 20:32 Urine Urobilinogen 2+ (NORMAL) 10/07/23 20:32 Ur Leukocyte Esterase 1+ (NEGATIVE) 10/07/23 20:32 Urine RBC 5-10 /HPF (0-3) A 10/07/23 20:32 Urine WBC 5-10 /HPF (0-5) A 10/07/23 20:32 Ur Squamous Epith Cells Few /HPF (NEGATIVE) 10/07/23 20:32 Amorphous Sediment 1+ /HPF (NEGATIVE) 10/07/23 20:32 Urine Bacteria Trace /HPF (NEGATIVE) 10/07/23 20:32 Urine Mucus Many /HPF (NEGATIVE) 10/07/23 20:32 Ur Culture Indicated? No/not indicated 10/07/23 20:32 SARS-CoV-2 (PCR) Negative (NEGATIVE) 10/07/23 15:40 Influenza Type A (PCR) Negative (NEGATIVE) 10/07/23 15:40 Influenza Type B (PCR) Negative (NEGATIVE) 10/07/23 15:40 RSV (PCR) Negative (NEGATIVE) 10/07/23 15:40 S. pyogenes (TEM-PCR) Not detected (NOT DETECT) 10/07/23 15:40 Plan (1) Left lower lobe pneumonia: Status: Acute (2) Hypoxemia: Status: Acute (3) Benign hypertension: Status: None (4) Chronic low back pain with sciatica: Status: None (5) Generalized anxiety disorder: Status: None
--- NOTE | 2023-10-09 15:05 | RAD ---
EXAM:CHEST x-ray, 1 VIEWHISTORY:LLL PNEUMONIA -COMPARISON:X-ray 10/07/2023FINDINGS:Infiltrate in the left mid lung persists. Right lung is clear. Borderline CHF changes are probably accentuated due to AP technique. No pneumothorax is seen.IMPRESSION:Probable persistent pneumonia in the left lung. Continued x-ray follow to document resolution is recommended.THIS IS AN ELECTRONICALLY VERIFIED FINAL REPORT10/09/2023 3:01 PM - Electronically signed by Neftali Hines MD
[2023-10-09] MEDS: ROCEPHIN VIAL 2 GRAMS 2 G in NS 100 ML IV 100 ML IV SCH (20:48)
[2023-10-09] MEDS: ZITHROMAX INJ 500 MG VIAL 500 MG in D5W 250 ML IV 250 ML IV SCH (21:26)
[2023-10-10 05:06] LABS: BASOPHILS # (AUTO) 0.1 X10^3/uL (0.0-0.1); BASOPHILS % (AUTO) 0.7 % (0.2-1.0); EOSINOPHILS # (AUTO) 0.2 x10^3/uL (0.0-0.2); EOSINOPHILS % (AUTO) 1.6 % (0.9-2.9); HEMATOCRIT 34.7 % (42.0-54.0); HEMOGLOBIN 11.3 g/dL (13.5-18.0); LYMPHOCYTES # (AUTO) 2.9 X10^3/uL (1.3-2.9); LYMPHOCYTES % (AUTO) 24.2 % (21.0-51.0); MEAN CORPUSCULAR HEMOGLOBIN 27.6 pg (27.0-34.0); MEAN CORPUSCULAR HGB CONC 32.7 g/dL (33.0-35.0); MEAN CORPUSCULAR VOLUME 84.2 fL (80.0-100.0); MEAN PLATELET VOLUME 8.5 fL (7.4-11.0); MONOCYTES # (AUTO) 1.7 x10^3/uL (0.3-0.8); MONOCYTES % (AUTO) 14.4 % (0.0-13.0); NEUTROPHILS % (AUTO) 59.1 % (42.0-75.0); PLATELET COUNT 235 X10^3/uL (150.0-450.0); RED BLOOD COUNT 4.12 X10^6/uL (4.7-6.0); RED CELL DISTRIBUTION WIDTH 13.8 % (11.6-16.5)
[2023-10-10 05:16] LABS: ALANINE AMINOTRANSFERASE 35 Units/L (12-78); ALBUMIN 1.7 g/dL (3.4-5.0); ALKALINE PHOSPHATASE 70 Units/L (46-116); ASPARTATE AMINO TRANSFERASE 21 Units/L (15-37); BLOOD UREA NITROGEN 12 mg/dL (7-18); CALCIUM 8.2 mg/dL (8.5-10.1); CARBON DIOXIDE 28.8 mmol/L (21-32); CHLORIDE 102 mmol/L (98-107); COR NA(FOR HYPERGLY) 141 mmol/L (136-145); CREATININE 0.86 mg/dL (0.70-1.30); GLUCOSE 124 mg/dL (65-99); MAGNESIUM 1.4 mg/dL (2.0-2.9); POTASSIUM 3.1 mmol/L (3.5-5.1); SODIUM 140 mmol/L (136-145); TOTAL PROTEIN 6.3 g/dL (6.4-8.2); eGFR NON BLACK RACES > 60 (>60)
[2023-10-10] MEDS: NS 1,000 ML IV 1,000 ML IV SCH (05:51)
[2023-10-10] MEDS ORDERED: CONSULT PHARMACY - POTASSIUM & MAGNESIUM XX SCH (08:00)
[2023-10-10] MEDS: DUONEB 0.5 MG/3 MG (3 mL) NEB SCH ×5 (08:38→20:15)
[2023-10-10] MEDS: PULMICORT NEB TX 0.5 MG NEB SCH ×2 (08:38→20:15)
[2023-10-10] MEDS: ZESTORETIC 20/25 MG PO SCH (09:44)
[2023-10-10] MEDS: NORVASC TAB 5 MG PO SCH (09:44)
[2023-10-10] MEDS: MOBIC TAB 15 MG PO SCH (09:44)
[2023-10-10] MEDS: NS + KCL 20 MEQ/L 1,000 ML with MAGNESIUM SULFATE 50% INJ VIAL 1 G IV SCH ×4 (09:44→23:00)
--- NOTE | 2023-10-10 10:52 | RAD ---
EXAM:CHEST, 1 VIEWHISTORY:PNEUMONIA;COMPARISON: 024FINDINGS:The trachea is midline. The cardiac silhouette is unremarkable. Persistent airspace opacification of the left lower lobe is observed. The right hemithorax is unremarkable. The bony thorax is unremarkable.IMPRESSION:Persistent left lower lobe bronchopneumonia.THIS IS AN ELECTRONICALLY VERIFIED FINAL REPORT10/10/2023 10:47 AM - Electronically signed by Newton Felix MD
--- NOTE | 2023-10-10 20:40 | PCM.PROG ---
Progress Note Progress Note for Day of Date of Exam: 10/10/23 Subjective Subjective: The patient is a 63-year-old male admitted for pneumonia. He is sitting up in bed this morning eating breakfast. He reports he is feeling a little better since admission. His chest x-ray this morning showed that he continues to have the left lower lobe bronchopneumonia. The patient's white blood cell count is still elevated at 12,000, and I see that he is hypomagnesemic along with hypokalemia this morning. His albumin is also low at 1.7. I will continue him on IV Rocephin and azithromycin. He also will continue DuoNebs and budesonide inhalations. We will plan on repeating a chest x-ray and routine labs again tomorrow morning. The patient is getting clinically better overall. Past Medical Family Social History Allergies: Allergies povidone-iodine [Betadine] Allergy (Unknown, Verified 10/07/23 20:38) Reason: Drug allergy Review of Systems ROS: No change since H&P Vital Signs and I&O's Vital Signs: Vital Signs Temperature 99.0 F Temperature 98.2 F Pulse Rate 71 Pulse Rate 67 Respiratory Rate 18 Respiratory Rate 20 Blood Pressure 141/77 Blood Pressure 133/63 O2 Sat by Pulse Oximetry 97 O2 Sat by Pulse Oximetry 96 Intake and Output: Intake & Output 10/08/23 10/09/23 10/10/23 10/11/23 11:59 11:59 11:59 11:59 Intake Total 2499 / 2499 2436 / 2436 1409 / 1409 Output Total 250 / 250 2100 / 2100 950 / 950 Balance -240 / -240 399 / 399 1486 / 1486 1409 / 1409 Physical Exam Oriented: Normal Eyes: Normal Ear: Normal Nose: Normal Throat: Normal Respiratory: Rhonchi Cardiovascular: Normal : Normal Auscultation: Bowel Sounds: Normal Tenderness: Normal Skin: Normal Musculoskeletal: Normal Psychiatric: Normal Mood Description: Calm and Appropriate Affect: Normal Speech Pattern: Clear and Appropriate Laboratory and Diagnostics 10/10/23 04:20 10/10/23 04:20 Labs: 10/07/23 23:58 Blood Blood Culture - Preliminary 10/07/23 20:26 Blood Blood Culture - Preliminary Laboratory WBC 12.0 X10^3/uL (3.6-10.0) H 10/10/23 04:20 RBC 4.12 X10^6/uL (4.7-6.0) L 10/10/23 04:20 Hgb 11.3 g/dL (13.5-18.0) L 10/10/23 04:20 Hct 34.7 % (42.0-54.0) L 10/10/23 04:20 MCV 84.2 fL (80.0-100.0) 10/10/23 04:20 MCH 27.6 pg (27.0-34.0) 10/10/23 04:20 MCHC 32.7 g/dL (33.0-35.0) L 10/10/23 04:20 RDW 13.8 % (11.6-16.5) 10/10/23 04:20 Plt Count 235 X10^3/uL (150.0-450.0) 10/10/23 04:20 MPV 8.5 fL (7.4-11.0) 10/10/23 04:20 Neut % (Auto) 59.1 % (42.0-75.0) 10/10/23 04:20 Lymph % (Auto) 24.2 % (21.0-51.0) 10/10/23 04:20 [place] % (Auto) 14.4 % (0.0-13.0) H 10/10/23 04:20 Eos % (Auto) 1.6 % (0.9-2.9) 10/10/23 04:20 Baso % (Auto) 0.7 % (0.2-1.0) 10/10/23 04:20 Neut # (Auto) 7.0 x10^3/uL (2.2-4.8) H 10/10/23 04:20 Lymph # (Auto) 2.9 X10^3/uL (1.3-2.9) 10/10/23 04:20 [place] # (Auto) 1.7 x10^3/uL (0.3-0.8) H 10/10/23 04:20 Eos # (Auto) 0.2 x10^3/uL (0.0-0.2) 10/10/23 04:20 Baso # (Auto) 0.1 X10^3/uL (0.0-0.1) 10/10/23 04:20 Absolute Nucleated RBC 0.0 /100WBC 10/10/23 04:20 PT 14.1 SECONDS (11.8-14.3) 10/07/23 20:26 INR Target Range - 10/07/23 20: INR 1.11 (0.8-1.3) 10/07/23 20:26 APTT 28.9 SECONDS (22.9-36.5) 10/07/23 20:26 PTT Comment - 10/07/23 20:26 D-Dimer 3.77 ug/ml (0.0-0.57) H 10/07/23 20:26 Sample Site L rad 10/08/23 00:24 ABG pH 7.510 (7.35-7.45) H 10/08/23 00:24 ABG pCO2 36.0 mmHg (35.0-45.0) 10/08/23 00:24 ABG pO2 76.0 mmHg (80.0-100.0) L 10/08/23 00:24 ABG HCO3 28.7 mmol/L (22-26) H 10/08/23 00:24 ABG O2 Saturation 96.0 % (90-100) 10/08/23 00:24 ABG Base Excess 5.5 mmol/L (-2.0-2.0) H 10/08/23 00:24 Lukasz Test Pos 10/08/23 00:24 A-a Gradient 29.0 mmHg 10/08/23 00:24 FiO2 21.0 10/08/23 00:24 Blood Gas Comments 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 10/08/23 00:24 Sodium 140 mmol/L (136-145) 10/10/23 04:20 Corrected Sodium 141 mmol/L (136-145) 10/10/23 04:20 Potassium 3.1 mmol/L (3.5-5.1) L 10/10/23 04:20 Chloride 102 mmol/L (98-107) 10/10/23 04:20 Carbon Dioxide 28.8 mmol/L (21-32) 10/10/23 04:20 BUN 12 mg/dL (7-18) 10/10/23 04:20 Creatinine 0.86 mg/dL (0.70-1.30) 10/10/23 04:20 Est GFR (MDRD) Af Amer > 60 (>60) 10/10/23 04:20 Est GFR (MDRD) Non-Af > 60 (>60) 10/10/23 04:20 Glucose 124 mg/dL (65-99) H 10/10/23 04:20 Lactic Acid 1.0 mmol/L (0.4-2.0) 10/07/23 23:58 Calcium 8.2 mg/dL (8.5-10.1) L 10/10/23 04:20 Corrected Calcium 10.0 mg/dL (8.5-10.1) 10/10/23 04:20 Magnesium 1.4 mg/dL (2.0-2.9) L 10/10/23 04:20 Total Bilirubin 0.30 mg/dL (0.2-1.0) 10/10/23 04:20 AST 21 Units/L (15-37) 10/10/23 04:20 ALT 35 Units/L (12-78) 10/10/23 04:20 Alkaline Phosphatase 70 Units/L (46-116) 10/10/23 04:20 Creatine Kinase 56 Units/L (39-308) 10/07/23 20:26 Troponin I High Sens 5.2 ng/L (4.0-60.0) 10/07/23 20:26 B-Natriuretic Peptide 170 pg/mL (0-79) H 10/07/23 20:26 Total Protein 6.3 g/dL (6.4-8.2) L 10/10/23 04:20 Albumin 1.7 g/dL (3.4-5.0) L 10/10/23 04:20 Globulin 4.6 g/dL (2.5-4.5) H 10/10/23 04:20 Albumin/Globulin Ratio 0.4 Ratio (1.1-2.1) L 10/10/23 04:20 Specimen Type Clean catch urine 10/07/23 20:32 Urine Color [place] (YELLOW) 10/07/23 20:32 Urine Appearance Clear (CLEAR) 10/07/23 20:32 Urine pH 6.0 (5.0 - 8.0) 10/07/23 20:32 Ur Specific [place] 1.015 (1.000-1.030) 10/07/23 20:32 Urine Protein 2+ (NEGATIVE) 10/07/23 20:32 Urine Glucose (UA) Negative (NEGATIVE) 10/07/23 20:32 Urine Ketones Negative (NEGATIVE) 10/07/23 20:32 Urine Blood 3+ (NEGATIVE) 10/07/23 20:32 Urine Nitrite Negative (NEGATIVE) 10/07/23 20:32 Urine Bilirubin 1+ (NEGATIVE) 10/07/23 20:32 Urine Urobilinogen 2+ (NORMAL) 10/07/23 20:32 Ur Leukocyte Esterase 1+ (NEGATIVE) 10/07/23 20:32 Urine RBC 5-10 /HPF (0-3) A 10/07/23 20:32 Urine WBC 5-10 /HPF (0-5) A 10/07/23 20:32 Ur Squamous Epith Cells Few /HPF (NEGATIVE) 10/07/23 20:32 Amorphous Sediment 1+ /HPF (NEGATIVE) 10/07/23 20:32 Urine Bacteria Trace /HPF (NEGATIVE) 10/07/23 20:32 Urine Mucus Many /HPF (NEGATIVE) 10/07/23 20:32 Ur Culture Indicated? No/not indicated 10/07/23 20:32 SARS-CoV-2 (PCR) Negative (NEGATIVE) 10/07/23 15:40 Influenza Type A (PCR) Negative (NEGATIVE) 10/07/23 15:40 Influenza Type B (PCR) Negative (NEGATIVE) 10/07/23 15:40 RSV (PCR) Negative (NEGATIVE) 10/07/23 15:40 Resp Viral Panel (PCR) See scanned report 10/08/23 06:20 S. pyogenes (TEM-PCR) Not detected (NOT DETECT) 10/07/23 15:40 Plan (1) Left lower lobe pneumonia: Status: Acute Plan: Continue IV azithromycin and Rocephin. (2) Hypoxemia: Status: Acute (3) Benign hypertension: Status: None (4) Chronic low back pain with sciatica: Status: None (5) Generalized anxiety disorder: Status: None
[2023-10-10] MEDS: ROCEPHIN VIAL 2 GRAMS 2 G in NS 100 ML IV 100 ML IV SCH (20:51)
[2023-10-10] MEDS: ZITHROMAX INJ 500 MG VIAL 500 MG in D5W 250 ML IV 250 ML IV SCH (21:25)
[2023-10-11 00:12] VITALS: RESP 20
[2023-10-11] MEDS: NS + KCL 20 MEQ/L 1,000 ML with MAGNESIUM SULFATE 50% INJ VIAL 1 G IV SCH ×2 (00:41)
[2023-10-11 04:23] VITALS: BP 161/87; TEMP 98.2
[2023-10-11 07:04] LABS: BASOPHILS % (AUTO) 0.5 % (0.2-1.0); EOSINOPHILS # (AUTO) 0.2 x10^3/uL (0.0-0.2); EOSINOPHILS % (AUTO) 1.6 % (0.9-2.9); HEMATOCRIT 35.1 % (42.0-54.0); HEMOGLOBIN 11.6 g/dL (13.5-18.0); LYMPHOCYTES # (AUTO) 2.6 X10^3/uL (1.3-2.9); LYMPHOCYTES % (AUTO) 26.6 % (21.0-51.0); MEAN CORPUSCULAR HEMOGLOBIN 27.9 pg (27.0-34.0); MEAN CORPUSCULAR HGB CONC 33.1 g/dL (33.0-35.0); MEAN CORPUSCULAR VOLUME 84.2 fL (80.0-100.0); NEUTROPHILS % (AUTO) 61.3 % (42.0-75.0); PLATELET COUNT 281 X10^3/uL (150.0-450.0); RED BLOOD COUNT 4.17 X10^6/uL (4.7-6.0); RED CELL DISTRIBUTION WIDTH 13.8 % (11.6-16.5); WHITE BLOOD COUNT 9.8 X10^3/uL (3.6-10.0)
[2023-10-11 07:20] LABS: ALANINE AMINOTRANSFERASE 33 Units/L (12-78); ALBUMIN 1.7 g/dL (3.4-5.0); ALKALINE PHOSPHATASE 62 Units/L (46-116); ASPARTATE AMINO TRANSFERASE 23 Units/L (15-37); BLOOD UREA NITROGEN 6 mg/dL (7-18); CALCIUM 8.1 mg/dL (8.5-10.1); CARBON DIOXIDE 27.9 mmol/L (21-32); CHLORIDE 103 mmol/L (98-107); COR CA(FOR HYPOALB) 9.9 mg/dL (8.5-10.1); COR NA(FOR HYPERGLY) 138 mmol/L (136-145); CREATININE 0.71 mg/dL (0.70-1.30); GLUCOSE 119 mg/dL (65-99); MAGNESIUM 1.5 mg/dL (2.0-2.9); POTASSIUM 3.3 mmol/L (3.5-5.1); SODIUM 138 mmol/L (136-145); TOTAL PROTEIN 6.4 g/dL (6.4-8.2); eGFR NON BLACK RACES > 60 (>60)
--- NOTE | 2023-10-11 07:47 | RAD ---
EXAM:Portable AP chestHISTORY:BronchopneumoniaCOMPARISON: 10/10/2023FINDINGS:There is no change in extent or distribution of the left lower lung infiltrate/airspace involvement. Heart size is unchanged at the right lung is clear.IMPRESSION:No change since 1 day prior.THIS IS AN ELECTRONICALLY VERIFIED FINAL REPORT10/11/2023 7:43 AM - Electronically signed by Yoshi Esteban MD
[2023-10-11] MEDS ORDERED: CONSULT PHARMACY - POTASSIUM & MAGNESIUM XX SCH (08:00)
[2023-10-11] MEDS ORDERED: NS + KCL 40 MEQ/L 1,000 ML with MAGNESIUM SULFATE 50% INJ VIAL 2 G IV SCH ×2 (08:00)
[2023-10-11] MEDS: MOBIC TAB 15 MG PO SCH (09:42)
[2023-10-11] MEDS: NORVASC TAB 5 MG PO SCH (09:43)
[2023-10-11] MEDS: ZESTORETIC 20/25 MG PO SCH (09:43)
[2023-10-11] MEDS: PULMICORT NEB TX 0.5 MG NEB SCH (10:03)
[2023-10-11] MEDS: DUONEB 0.5 MG/3 MG (3 mL) NEB SCH (10:03)
[2023-10-11 10:07] VITALS: PULSE 72; O2SAT 97
[2023-10-11] MEDS ORDERED: K-DUR TAB 20 MEQ PO ONE (12:00)
[2023-10-11] MEDS ORDERED: MAG-OX TAB PO ONE (12:00)
--- NOTE | 2023-10-14 09:53 | W.DIS.FURT ---
Summary of Discharge Discharge Summary of Date Date of Exam: 10/11/23 Admission Date Date of Admission: 10/07/23 Admission Diagnosis Patient Problems (Updated 10/08/23 @ 04:41 by Bertha López) Left lower lobe pneumonia (Acute) J18.9 Hypoxemia (Acute) R09.02 Hospital Course: Patient is a 63-year-old male admitted for pneumonia. His hospital/treatment course included: IV fluids normal saline at 75 mL/h, antibiotics: IV Rocephin daily and IV azithromycin daily for antibiotic coverage. Scheduled bronchodilators, I/S, and supplemental oxygen. Labs/imaging: WBC 9.8, hemoglobin 11.6, platelets 281, sodium 138, potassium 3.3, creatinine 0.71, glucose 119. AIT results positive for Moraxella cat, staph aur, and strep pneu. Patient responded well to treatment since symptoms significantly improved. He is not requiring any supplemental oxygen. Patient was discharged in stable condition, Rx Augmentin x 5 days. Instructed to follow-up with PCP in 1 week. Vital Signs: Vital Signs (72 hours) 10/08/23 09:49 10/08/23 09:50 10/08/23 10:11 Temperature Pulse Rate 71 69 Pulse Rate [Right Brachial] Respiratory Rate 21 Blood Pressure Blood Pressure [Right Arm] O2 Sat by Pulse Oximetry 97 98 Oxygen Delivery Method Nasal Cannula Oxygen Flow Rate 2 FIO2% 28 10/08/23 10:12 10/08/23 10:12 10/08/23 11:00 Temperature Pulse Rate 80 76 Pulse Rate [Right Brachial] Respiratory Rate 25 H 19 Blood Pressure 134/75 Blood Pressure [Right Arm] O2 Sat by Pulse Oximetry 98 99 Oxygen Delivery Method Oxygen Flow Rate FIO2% 10/08/23 11:00 10/08/23 12:00 10/08/23 12:00 Temperature Pulse Rate 75 Pulse Rate [Right Brachial] Respiratory Rate 26 H Blood Pressure 128/73 116/60 Blood Pressure [Right Arm] O2 Sat by Pulse Oximetry 98 Oxygen Delivery Method Oxygen Flow Rate FIO2% 10/08/23 13:00 10/08/23 13:56 10/08/23 13:00 Temperature Pulse Rate 72 74 Pulse Rate [Right Brachial] Respiratory Rate 22 Blood Pressure 106/59 Blood Pressure [Right Arm] O2 Sat by Pulse Oximetry 98 98 Oxygen Delivery Method Oxygen Flow Rate FIO2% 10/08/23 13:59 10/08/23 14:00 10/08/23 14:00 Temperature Pulse Rate 72 72 Pulse Rate [Right Brachial] Respiratory Rate 16 11 L Blood Pressure 85/53 Blood Pressure [Right Arm] O2 Sat by Pulse Oximetry 99 98 Oxygen Delivery Method Oxygen Flow Rate FIO2% 10/08/23 15:00 10/08/23 15:00 10/08/23 16:00 Temperature 97.8 F Pulse Rate 79 77 Pulse Rate [Right Brachial] Respiratory Rate 25 H 31 H Blood Pressure 102/58 Blood Pressure [Right Arm] O2 Sat by Pulse Oximetry 99 99 Oxygen Delivery Method Oxygen Flow Rate FIO2% 10/08/23 16:00 10/08/23 17:00 10/08/23 17:00 Temperature Pulse Rate 63 Pulse Rate [Right Brachial] Respiratory Rate 17 Blood Pressure 97/60 108/65 Blood Pressure [Right Arm] O2 Sat by Pulse Oximetry 98 Oxygen Delivery Method Oxygen Flow Rate FIO2% 10/08/23 18:00 10/08/23 18:00 10/08/23 19:00 Temperature Pulse Rate 72 Pulse Rate [Right Brachial] Respiratory Rate 25 H Blood Pressure 120/63 133/68 Blood Pressure [Right Arm] O2 Sat by Pulse Oximetry 99 Oxygen Delivery Method Oxygen Flow Rate FIO2% 10/08/23 19:00 10/08/23 19:00 10/08/23 20:00 Temperature Pulse Rate 77 78 Pulse Rate [Right Brachial] Respiratory Rate 27 H 21 Blood Pressure Blood Pressure [Right Arm] O2 Sat by Pulse Oximetry 98 100 Oxygen Delivery Method Nasal Cannula Oxygen Flow Rate 2 FIO2% 10/08/23 20:01 10/08/23 20:27 10/08/23 20:27 Temperature 97.9 F Pulse Rate 71 Pulse Rate [Right Brachial] Respiratory Rate Blood Pressure 120/56 Blood Pressure [Right Arm] O2 Sat by Pulse Oximetry 99 Oxygen Delivery Method Nasal Cannula Oxygen Flow Rate 2 FIO2% 28 10/08/23 21:00 10/08/23 21:00 10/08/23 22:00 Temperature Pulse Rate 85 77 Pulse Rate [Right Brachial] Respiratory Rate 18 20 Blood Pressure 136/63 Blood Pressure [Right Arm] O2 Sat by Pulse Oximetry 99 100 Oxygen Delivery Method Oxygen Flow Rate FIO2% 10/08/23 22:01 10/08/23 23:00 10/08/23 23:00 Temperature Pulse Rate 76 Pulse Rate [Right Brachial] Respiratory Rate 21 Blood Pressure 136/64 126/60 Blood Pressure [Right Arm] O2 Sat by Pulse Oximetry 97 Oxygen Delivery Method Oxygen Flow Rate FIO2% 10/09/23 00:00 10/09/23 00:00 10/09/23 01:00 Temperature 97.7 F Pulse Rate 72 Pulse Rate [Right Brachial] Respiratory Rate 15 Blood Pressure 121/74 126/68 Blood Pressure [Right Arm] O2 Sat by Pulse Oximetry 98 Oxygen Delivery Method Oxygen Flow Rate FIO2% 10/09/23 01:00 10/09/23 02:00 10/09/23 02:00 Temperature Pulse Rate 68 65 Pulse Rate [Right Brachial] Respiratory Rate 21 15 Blood Pressure 119/68 Blood Pressure [Right Arm] O2 Sat by Pulse Oximetry 99 98 Oxygen Delivery Method Oxygen Flow Rate FIO2% 10/09/23 03:00 10/09/23 03:00 10/09/23 04:00 Temperature Pulse Rate 69 63 Pulse Rate [Right Brachial] Respiratory Rate 17 15 Blood Pressure 126/74 Blood Pressure [Right Arm] O2 Sat by Pulse Oximetry 95 98 Oxygen Delivery Method Oxygen Flow Rate FIO2% 10/09/23 04:00 10/09/23 05:00 10/09/23 05:00 Temperature 97.9 F Pulse Rate 68 Pulse Rate [Right Brachial] Respiratory Rate 16 Blood Pressure 128/69 127/75 Blood Pressure [Right Arm] O2 Sat by Pulse Oximetry 99 Oxygen Delivery Method Oxygen Flow Rate FIO2% 10/09/23 06:00 10/09/23 06:01 10/09/23 07:00 Temperature Pulse Rate 70 70 Pulse Rate [Right Brachial] Respiratory Rate 20 22 Blood Pressure 157/74 Blood Pressure [Right Arm] O2 Sat by Pulse Oximetry 97 99 Oxygen Delivery Method Oxygen Flow Rate FIO2% 10/09/23 07:01 10/09/23 07:01 10/09/23 07:44 Temperature Pulse Rate 65 Pulse Rate [Right Brachial] Respiratory Rate 16 Blood Pressure 144/81 Blood Pressure [Right Arm] O2 Sat by Pulse Oximetry 99 Oxygen Delivery Method Nasal Cannula Oxygen Flow Rate 2 FIO2% 10/09/23 09:03 10/09/23 09:06 10/09/23 09:06 Temperature 97.6 F Pulse Rate 78 74 Pulse Rate [Right Brachial] Respiratory Rate 24 22 Blood Pressure 133/73 Blood Pressure [Right Arm] O2 Sat by Pulse Oximetry 93 L Oxygen Delivery Method Oxygen Flow Rate FIO2% 10/09/23 09:07 10/09/23 09:07 10/09/23 10:00 Temperature Pulse Rate 74 Pulse Rate [Right Brachial] Respiratory Rate Blood Pressure 120/70 Blood Pressure [Right Arm] O2 Sat by Pulse Oximetry 96 Oxygen Delivery Method Nasal Cannula Oxygen Flow Rate 2 FIO2% 28 10/09/23 10:00 10/09/23 11:00 10/09/23 11:00 Temperature Pulse Rate 78 74 Pulse Rate [Right Brachial] Respiratory Rate 24 22 Blood Pressure 132/64 Blood Pressure [Right Arm] O2 Sat by Pulse Oximetry 82 L 96 Oxygen Delivery Method Oxygen Flow Rate FIO2% 10/09/23 12:00 10/09/23 12:00 10/09/23 13:00 Temperature Pulse Rate 75 72 Pulse Rate [Right Brachial] Respiratory Rate 19 21 Blood Pressure 140/69 Blood Pressure [Right Arm] O2 Sat by Pulse Oximetry 96 95 Oxygen Delivery Method Oxygen Flow Rate FIO2% 10/09/23 13:01 10/09/23 13:01 10/09/23 16:32 Temperature Pulse Rate 80 Pulse Rate [Right Brachial] Respiratory Rate 36 H Blood Pressure 146/72 Blood Pressure [Right Arm] O2 Sat by Pulse Oximetry 69 L Oxygen Delivery Method Room Air Oxygen Flow Rate FIO2% 10/09/23 17:42 10/09/23 20:00 10/09/23 19:00 Temperature 98.6 F 97.9 F Pulse Rate 74 75 Pulse Rate [Right Brachial] Respiratory Rate 20 20 Blood Pressure 132/75 151/90 Blood Pressure [Right Arm] O2 Sat by Pulse Oximetry 96 97 Oxygen Delivery Method Nasal Cannula Oxygen Flow Rate 2 FIO2% 10/10/23 00:00 10/09/23 21:15 10/09/23 21:15 Temperature 98.3 F Pulse Rate 83 71 Pulse Rate [Right Brachial] Respiratory Rate 20 Blood Pressure 148/80 Blood Pressure [Right Arm] O2 Sat by Pulse Oximetry 95 95 Oxygen Delivery Method Room Air Oxygen Flow Rate FIO2% 10/10/23 04:00 10/10/23 08:32 10/10/23 08:38 Temperature 98.9 F 97.7 F Pulse Rate 75 71 Pulse Rate [Right Brachial] Respiratory Rate 20 20 Blood Pressure 173/98 166/93 Blood Pressure [Right Arm] O2 Sat by Pulse Oximetry 96 96 96 Oxygen Delivery Method Oxygen Flow Rate FIO2% 10/10/23 07:00 10/10/23 12:39 10/10/23 18:08 Temperature 98.2 F 99.0 F Pulse Rate 67 71 Pulse Rate [Right Brachial] Respiratory Rate 20 18 Blood Pressure 133/63 141/77 Blood Pressure [Right Arm] O2 Sat by Pulse Oximetry 96 97 Oxygen Delivery Method Room Air Oxygen Flow Rate FIO2% 10/10/23 20:15 10/10/23 20:15 10/10/23 19:00 Temperature Pulse Rate 74 Pulse Rate [Right Brachial] Respiratory Rate Blood Pressure Blood Pressure [Right Arm] O2 Sat by Pulse Oximetry 96 Oxygen Delivery Method Room Air Room Air Oxygen Flow Rate FIO2% 21 10/11/23 00:00 10/10/23 20:00 10/11/23 04:00 Temperature 98.4 F 98.7 F 98.2 F Pulse Rate 73 72 Pulse Rate [Right Brachial] 75 Respiratory Rate 20 20 20 Blood Pressure 140/73 138/77 Blood Pressure [Right Arm] 161/87 O2 Sat by Pulse Oximetry 96 95 94 L Oxygen Delivery Method Room Air Oxygen Flow Rate FIO2% Labs: Laboratory Last Values WBC 9.8 X10^3/uL (3.6-10.0) 10/11/23 06:40 RBC 4.17 X10^6/uL (4.7-6.0) L 10/11/23 06:40 Hgb 11.6 g/dL (13.5-18.0) L 10/11/23 06:40 Hct 35.1 % (42.0-54.0) L 10/11/23 06:40 MCV 84.2 fL (80.0-100.0) 10/11/23 06:40 MCH 27.9 pg (27.0-34.0) 10/11/23 06:40 MCHC 33.1 g/dL (33.0-35.0) 10/11/23 06:40 RDW 13.8 % (11.6-16.5) 10/11/23 06:40 Plt Count 281 X10^3/uL (150.0-450.0) 10/11/23 06:40 MPV 8.0 fL (7.4-11.0) 10/11/23 06:40 Neut % (Auto) 61.3 % (42.0-75.0) 10/11/23 06:40 Lymph % (Auto) 26.6 % (21.0-51.0) 10/11/23 06:40 [place] % (Auto) 10.0 % (0.0-13.0) 10/11/23 06:40 Eos % (Auto) 1.6 % (0.9-2.9) 10/11/23 06:40 Baso % (Auto) 0.5 % (0.2-1.0) 10/11/23 06:40 Neut # (Auto) 6.0 x10^3/uL (2.2-4.8) H 10/11/23 06:40 Lymph # (Auto) 2.6 X10^3/uL (1.3-2.9) 10/11/23 06:40 [place] # (Auto) 1.0 x10^3/uL (0.3-0.8) H 10/11/23 06:40 Eos # (Auto) 0.2 x10^3/uL (0.0-0.2) 10/11/23 06:40 Baso # (Auto) 0.0 X10^3/uL (0.0-0.1) 10/11/23 06:40 Absolute Nucleated RBC 0.0 /100WBC 10/11/23 06:40 PT 14.1 SECONDS (11.8-14.3) 10/07/23 20:26 INR Target Range - 10/07/23 20:26 INR 1.11 (0.8-1.3) 10/07/23 20:26 APTT 28.9 SECONDS (22.9-36.5) 10/07/23 20:26 PTT Comment - 10/07/23 20:26 D-Dimer 3.77 ug/ml (0.0-0.57) H 10/07/23 20:26 Sample Site L rad 10/08/23 00:24 ABG pH 7.510 (7.35-7.45) H 10/08/23 00:24 ABG pCO2 36.0 mmHg (35.0-45.0) 10/08/23 00:24 ABG pO2 76.0 mmHg (80.0-100.0) L 10/08/23 00:24 ABG HCO3 28.7 mmol/L (22-26) H 10/08/23 00:24 ABG O2 Saturation 96.0 % (90-100) 10/08/23 00:24 ABG Base Excess 5.5 mmol/L (-2.0-2.0) H 10/08/23 00:24 Lukasz Test Pos 10/08/23 00:24 A-a Gradient 29.0 mmHg 10/08/23 00:24 FiO2 21.0 10/08/23 00:24 Blood Gas Comments [employer] 10/08/23 00:24 Sodium 138 mmol/L (136-145) 10/11/23 06:40 Corrected Sodium 138 mmol/L (136-145) 10/11/23 06:40 Potassium 3.3 mmol/L (3.5-5.1) L 10/11/23 06:40 Chloride 103 mmol/L (98-107) 10/11/23 06:40 Carbon Dioxide 27.9 mmol/L (21-32) 10/11/23 06:40 BUN 6 mg/dL (7-18) L 10/11/23 06:40 Creatinine 0.71 mg/dL (0.70-1.30) 10/11/23 06:40 Est GFR (MDRD) Af Amer > 60 (>60) 10/11/23 06:40 Est GFR (MDRD) Non-Af > 60 (>60) 10/11/23 06:40 Glucose 119 mg/dL (65-99) H 10/11/23 06:40 Lactic Acid 1.0 mmol/L (0.4-2.0) 10/07/23 23:58 Calcium 8.1 mg/dL (8.5-10.1) L 10/11/23 06:40 Corrected Calcium 9.9 mg/dL (8.5-10.1) 10/11/23 06:40 Magnesium 1.4 mg/dL (2.0-2.9) L 10/11/23 06:50 Total Bilirubin 0.30 mg/dL (0.2-1.0) 10/11/23 06:40 AST 23 Units/L (15-37) 10/11/23 06:40 ALT 33 Units/L (12-78) 10/11/23 06:40 Alkaline Phosphatase 62 Units/L (46-116) 10/11/23 06:40 Creatine Kinase 56 Units/L (39-308) 10/07/23 20: Troponin I High Sens 5.2 ng/L (4.0-60.0) 10/07/23 20: B-Natriuretic Peptide 170 pg/mL (0-79) H 10/07/23 20:26 Total Protein 6.4 g/dL (6.4-8.2) 10/11/23 06:40 Albumin 1.7 g/dL (3.4-5.0) L 10/11/23 06:40 Globulin 4.7 g/dL (2.5-4.5) H 10/11/23 06:40 Albumin/Globulin Ratio 0.4 Ratio (1.1-2.1) L 10/11/23 06:40 Specimen Type Clean catch urine 10/07/23 20:32 Urine Color [place] (YELLOW) 10/07/23 20: Urine Appearance Clear (CLEAR) 10/07/23 20: Urine pH 6.0 (5.0 - 8.0) 10/07/23 20:32 Ur Specific [place] 1.015 (1.000-1.030) 10/07/23 20:32 Urine Protein 2+ (NEGATIVE) 10/07/23 20: Urine Glucose (UA) Negative (NEGATIVE) 10/07/23 20: Urine Ketones Negative (NEGATIVE) 10/07/23 20:32 Urine Blood 3+ (NEGATIVE) 10/07/23 20: Urine Nitrite Negative (NEGATIVE) 10/07/23 20: Urine Bilirubin 1+ (NEGATIVE) 10/07/23 20:32 Urine Urobilinogen 2+ (NORMAL) 10/07/23 20:32 Ur Leukocyte Esterase 1+ (NEGATIVE) 10/07/23 20:32 Urine RBC 5-10 /HPF (0-3) A 10/07/23 20: Urine WBC 5-10 /HPF (0-5) A 10/07/23 20:32 Ur Squamous Epith Cells Few /HPF (NEGATIVE) 10/07/23 20:32 Amorphous Sediment 1+ /HPF (NEGATIVE) 10/07/23 20:32 Urine Bacteria Trace /HPF (NEGATIVE) 10/07/23 20: Urine Mucus Many /HPF (NEGATIVE) 10/07/23 20:32 Ur Culture Indicated? No/not indicated 10/07/23 20:32 SARS-CoV-2 (PCR) Negative (NEGATIVE) 10/07/23 15:40 Influenza Type A (PCR) Negative (NEGATIVE) 10/07/23 15:40 Influenza Type B (PCR) Negative (NEGATIVE) 10/07/23 15:40 RSV (PCR) Negative (NEGATIVE) 10/07/23 15:40 Resp Viral Panel (PCR) See scanned report 10/08/23 06:20 S. pyogenes (TEM-PCR) Not detected (NOT DETECT) 10/07/23 15:40 Reason For Visit: PNEUMONIA, HYPOXIA Discharge Date Discharge Date: 10/11/23 Discharge Diagnosis All Active Problems (Updated 10/08/23 @ 04:41 by Bertha López) Left lower lobe pneumonia (Acute) Hypoxemia (Acute) Right hip pain (Acute) Plan of Treatment: Continue with present treatment and follow up plan. Pt is to keep follow up appointment as instructed and take medications as ordered. Discharge Medications Discharge Medications: povidone-iodine [Betadine] Allergy (Unknown, Verified 10/07/23 20:38) Discharge Disposition Assessment: No acute distress noted at discharge. Discharge Plan Discharge Plan Hospital Course: Patient is a 63-year-old male admitted for pneumonia. His hospital/treatment course included: IV fluids normal saline at 75 mL/h, antibiotics: IV Rocephin daily and IV azithromycin daily for antibiotic coverage. Scheduled bronchodilators, I/S, and supplemental oxygen. Labs/imaging: WBC 9.8, hemoglobin 11.6, platelets 281, sodium 138, potassium 3.3, creatinine 0.71, glucose 119. AIT results positive for Moraxella cat, staph aur, and strep pneu. Patient responded well to treatment since symptoms significantly improved. He is not requiring any supplemental oxygen. Patient was discharged in stable condition, Rx Augmentin x 5 days. Instructed to follow-up with PCP in 1 week. Patient Disposition: HOME, SELF-CARE Condition: Stable Health Concerns: Post Hospitalization: new medications and changes needed to prevent readmission or further decline. Pt educated and given instructions on all concerns. Care Plan Goals: Problem: Infection Goal: Temperature within normal limits. Resolved infection. Instructions: Follow provided instructions. Follow up with primary physician as directed. Contact primary care physician or report to the closest Emergency Room if condition worsens. Plan of Treatment: Continue with present treatment and follow up plan. Pt is to keep follow up appointment as instructed and take medications as ordered. Assessment: No acute distress noted at discharge. Prescriptions: New amoxicillin-pot clavulanate 875-125 mg Tablet 1 tab PO Q12H Qty: 10 0RF No Action lisinopril-hydrochlorothiazide 20-25 mg tablet 1 tab PO QDAY Qty: 30 3RF sildenafil [Viagra] 100 mg tablet 100 mg PO QDAY PRN (Reason: sexual activity) 30 Days Qty: 30 2RF Rx Instructions: FreeTextSi (one) Tablet daily, as needed; Note: Take 1 hour before activity.; Refills: 2; Provider: Antonieta Chahal alprazolam [Xanax] 0.5 mg tablet 0.5 mg PO QDAY MDD 1 PRN (Reason: anxiety) 30 Days Qty: 30 0RF hydrocodone-acetaminophen 10-325 mg tablet 1 tab PO TID MDD 3 PRN (Reason: pain) 30 Days Qty: 90 0RF Follow ups/Referrals Follow ups/Referrals: Tirso Fung [Primary Care Provider] - 10/16/23 9:40 am Instructions Instructions: Influenza, Adult, [id number], Cough, Adult, [id number], How to Use an Incentive Spirometer, Hand Washing, [id number], Infection Prevention in the Home, Community-Acquired Pneumonia, Adult, [id number] Stand Alone Forms: Excuse From Work or School, Post Hospital Follow Up Care
== END 2023-10-11 12:20 | disposition home or self-care (01) | DRG 194 ==
LOC: ICU 15:26 → ER 15:26 → ICU 10-08 05:36 → MED/SURG 10-09 14:56
PROVIDERS: ADMIT Internal Medicine; ATTEND Family Medicine